=== PATIENT | male | born 1965 | race Two or more races ===

== ENCOUNTER 2017-12-12 12:03 | Emergency (ER) | payer OTHER ==
[2017-12-12] MEDS ORDERED: ONDANSETRON 4 MG/2 ML VIAL IVP ONE (13:10)
[2017-12-12] MEDS ORDERED: FAMOTIDINE 20 MG/NACL 50 ML IV ONE (13:10)
[2017-12-12] MEDS ORDERED: fentaNYL 100 MCG/2 ML INJ IVP ONE (13:10)
[2017-12-12] MEDS ORDERED: NS 1,000 ML IV ONE (13:10)
[2017-12-12] MEDS ORDERED: LORazepam 2 MG/ML INJ IVP ONE (13:11)
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
[2017-12-12 13:32] LABS: PLATELET COUNT 114 10^3/uL (150-400)
[2017-12-12 13:54] VITALS: BP 195/110
== END 2017-12-12 14:05 | disposition home or self-care (01) ==
DX: F10.129 Alcohol abuse with intoxication, unspecified (principal); R10.84 Generalized abdominal pain; E86.9 Volume depletion, unspecified; I10 Essential (primary) hypertension; E11.9 Type 2 diabetes mellitus without complications; Z79.84 Long term (current) use of oral hypoglycemic drugs; Z87.891 Personal history of nicotine dependence
CPT/HCPCS: 96361; 96374; 96375; 99284; J2060; J2270; J2405